=== PATIENT | female | born 1980 | race Caucasian/White ===

== ENCOUNTER → 2023-08-17 10:40 | Outpatient (REF) | payer BC, SELFPAY | LOC: WDC 10:40 | PROVIDERS: ATTENDING PHYSICIAN Family Medicine | DX: Z12.31 Encounter for screening mammogram for malignant neoplasm of breast (principal) | CPT/HCPCS: 77063; 77067 ==

== ENCOUNTER → 2024-10-25 09:29 | Outpatient (REF) | payer BC, SELFPAY | LOC: RAD 09:29 | PROVIDERS: ATTENDING PHYSICIAN Obstetrics & Gynecology | DX: D25.9 Leiomyoma of uterus, unspecified (principal) | CPT/HCPCS: 76830; 76856 ==